=== PATIENT | female | born 1960 | race Two or more races ===

== ENCOUNTER 2017-01-02 10:55 | Day surgery (SDC) | payer OTHER ==
[~2017-01-02] VITALS: Ht 167.6 cm; Wt 77.6 kg
[2017-01-02 12:03] VITALS: Ht 167.6 cm; Wt 77.6 kg
[2017-01-02] MEDS ORDERED: PRAVASTATIN (12:16)
[2017-01-02] MEDS ORDERED: OMEPRAZOLE (12:16)
[2017-01-02] MEDS ORDERED: ASPIRIN (12:16)
[2017-01-02] MEDS ORDERED: ALLOPURINOL (12:16)
[2017-01-02] MEDS ORDERED: ACARBOSE (12:16)
[2017-01-02] MEDS ORDERED: LOSARTAN (12:16)
[2017-01-02 12:26] VITALS: BP 115/61; PULSE 60; RESP 18
[2017-01-02] MEDS ORDERED: MIDAZOLAM 1 MG/ML 2 ML INJ ONE ×2 (13:10)
[2017-01-02] MEDS ORDERED: FENTAnyl 50 MCG/ML VIAL ONE (13:11)
--- NOTE | 2017-01-02 13:36 | GILP ---
DATE OF PROCEDURE: NAME OF PROCEDURES: 1. Esophagogastroduodenoscopy and biopsy. 2. Colonoscopy. SURGEON: Shaniqua June MD PREOPERATIVE DIAGNOSES: 1. Abdominal pain. 2. Chronic heartburn. 3. Screening colonoscopy. POSTOPERATIVE DIAGNOSES: 1. Gastroesophageal reflux disease. 2. Gastritis with erosions. 3. Gastric mucosal biopsies were taken for Helicobacter pylori test. 4. Colonoscopy all the way to the cecum. 5. Internal hemorrhoids. 6. No colon neoplasm was identified. INDICATION FOR THE PROCEDURE: Ms. Diana Kilpatrick is a 56-year-old female patient who had upper abdomin al pain and chronic heartburn, not responding to therapy. Patient also needed screening colonoscopy . The procedures and possible complications are well explained to the patient. The patient understood and consented to the procedure. DESCRIPTION OF PROCEDURE: Under the influence of fentanyl and Versed, the gastroscope was carefully introduced into the esophagus and under direct vision, it was advanced to the stomach and through t he pylorus into the duodenal bulb and descending duodenum. FINDINGS: ESOPHAGUS: The patient had gastroesophageal reflux disease. STOMACH: She had gastritis with erosions. Gastric mucosal biopsies were taken for H. pylori test. DUODENUM: Normal. The colonoscope was carefully introduced in the rectum and under direct vision, it was advanced all the way to the cecum. FINDINGS: The patient had internal hemorrhoids. No colon neoplasm was identified. She tolerated the procedures very well and there was no complication from the procedures. At the en d of the procedures, she was awake with stable vital signs and she was discharged home to the care o f her family. IMPRESSION: Please see postoperative diagnoses. PLAN: 1. Continue omeprazole. 2. Add Zantac 300 mg p.o. at bedtime. 3. Await H. pylori test report. Dictated By: SHANIQUA MARCANO/DEE Conf#: [id number] DID#: [id number]
[2017-01-02 14:46] VITALS: BP 91/41; PULSE 58; RESP 19
== END 2017-01-02 16:16 | disposition home or self-care (01) ==
LOC: GIL 10:55
PROVIDERS: ATTEND Internal Medicine Gastroenterology
DX: Z12.11 Encounter for screening for malignant neoplasm of colon (principal); K21.9 Gastro-esophageal reflux disease without esophagitis; K29.60 Other gastritis without bleeding; K64.8 Other hemorrhoids; I10 Essential (primary) hypertension; E11.9 Type 2 diabetes mellitus without complications
CPT/HCPCS: 43239; 45378; 87081; J2250; J3010; Z7610